=== PATIENT | female | born 1965 | race Caucasian/White ===

== ENCOUNTER 2021-06-11 19:40 | Observation (INO) | payer OTHER ==
[~2021-06-11] VITALS: Ht 170.2 cm; Wt 127.9 kg
[2021-06-11 19:47] VITALS: BP 97/47
[2021-06-11] MEDS ORDERED: LISINOPRIL-HCT1 EAC2 PO (19:54)
[2021-06-11] MEDS ORDERED: ACYCLOVIR 200200 MG PO (19:54)
[2021-06-11] MEDS ORDERED: ESCITALOPRA5 MG/5 ML PO (19:56)
[2021-06-11] MEDS ORDERED: PERCOCET 5-3251 EACH PO (19:57)
[2021-06-11] MEDS ORDERED: XARELTO20 MG PO (19:58)
[2021-06-11] MEDS ORDERED: COMPAZINE10 MG PO (19:58)
[2021-06-11] MEDS ORDERED: CEPHALEXIN500 MG PO (19:58)
[2021-06-11 21:11] LABS: ABSOLUTE EOSINOPHILS 0.1 thou/uL (0.0-0.7); ABSOLUTE LYMPHOCYTES 1.1 thou/uL (0.8-5.3); ABSOLUTE MONOCYTES 0.6 thou/uL (0.0-1.2); ABSOLUTE NEUTROPHILS 2.1 thou/uL (1.6-8.1); BASOPHILS 0.9 %; EOSINOPHILS 1.4 %; HEMATOCRIT 25.7 % (37.0-47.0); HEMOGLOBIN 8.7 gm/dL (12.0-15.0); LYMPHOCYTES 29.1 %; MCH 35.6 pg (26.0-34.0); MCV 104.9 fL (80.0-100.0); MONOCYTES 14.3 %; MPV 5.8 fl. (7.2-11.1); NUCLEATED RBCS 0 /100WBC; PLATELET COUNT* 248 thou/uL (150-400); POLYS 54.3 %; RBC 2.45 mil/uL (4.20-5.00); WBC 3.9 thou/uL (4.0-11.0)
[2021-06-11 21:21] LABS: CALCIUM 8.8 mg/dL (8.5-10.1); POTASSIUM 3.9 mmol/L (3.5-5.1)
[2021-06-11 21:31] LABS: ALBUMIN 3.4 g/dL (3.4-5.0); MAGNESIUM 1.7 mg/dL (1.8-2.4); TOTAL BILIRUBIN 0.3 mg/dL (<0.1-1.0); TOTAL PROTEIN 6.5 g/dL (6.4-8.2)
[2021-06-11 21:53] LABS: INR 1.2; PROTIME 13.1 Seconds (9.20-11.50)
[2021-06-12 02:03] LABS: URINE BILIRUBIN NEGATIVE (Negative); URINE BLOOD NEGATIVE (Negative); URINE CLARITY CLEAR; URINE COLOR YELLOW; URINE GLUCOSE-RANDOM NEGATIVE (Negative); URINE KETONES NEGATIVE (Negative); URINE LEUKOCYTES-REFLEX 1+ (Negative); URINE NITRITE-REFLEX NEGATIVE (Negative); URINE PROTEIN NEGATIVE (Negative); URINE SPECIFIC GRAVITY 1.015 (1.005-1.030); URINE UROBILINOGEN 0.2 E.U./dl (0.2-1.0)
[2021-06-12 02:50] LABS: CASTS None Seen /LPF (None Seen); SQUAMOUS >10 Many /LPF (0-3)
[2021-06-12 02:51] LABS: CRYSTALS None Seen /LPF (None Seen); MUCUS 0-3 Light strn/LPF (None Seen); URINE RBC None Seen /HPF (0-2); URINE WBC-REFLEX 6-15 Few /HPF (0-5)
[2021-06-12 04:30] VITALS: BP 121/49
[2021-06-12] MEDS ORDERED: CHEMO THERAPY (07:26)
[2021-06-12 07:29] VITALS: BP 111/47
--- NOTE | 2021-06-12 08:44 | NUR ---
PT GIVEN REGULAR DIET BREAKFAST TRAY. PT HAVING ADMISSION ASSESSMENT DONE AT THIS TIME.
--- NOTE | 2021-06-12 10:50 | EKG ---
[place] [address] ELECTROCARDIOGRAM REPORT Name: ALICIA SAAVEDRA Room: [address]#: [id number] Admission: 06/12/21 Attend Phys: Zhao Valentin Discharge: Date of : 67 Date of Service: 06/11/212024 Report #: [id number] THIS REPORT FOR: //name// [facility] ED Test Date: 2021-06-11 Test Time: 20:25:41 Pat Name: ALICIA SAAVEDRA Department: Room: [facility] Gender: F [employer] Good[employer] Salesperson: ADRIENNE : 1965 Requested By: Ruchi Nicole Order Number: [id number] MD: Keny Natarajan Measurements Intervals [place] Rate: 70 P: 26 CT: 152 QRS: -26 QRSD: 94 T: 8 QT: 406 QTc: 439 Interpretive Statements Sinus rhythm Borderline left axis deviation Low voltage, precordial leads Consider anterior infarct No previous ECG available for comparison Electronically Signed On 06-12-2021 10:50:03 CDT by Keny Natarajan [email or web address] <ELECTRONICALLY SIGNED> By: Keny Natarajan MD, [facility] 06/12/21 1050 24 24 Keny Natarajan MD, [facility] /EPI
[2021-06-12 10:59] VITALS: BP 111/47
--- NOTE | 2021-06-12 11:18 | NUR ---
1054: PATIENT ADMITTED TO [facility] DUE TO SYNCOPE, LEFT ARM SWELLING AND ANEMIA. PATIENT TRANSFERED FROM ED VIA BED, ACCOMPANIED BY SIGNIFICANT OTHER AND STAFF. PATIENT ORIENTED TO ROOM AND FLOOR. REPORT RECIEVED FROM SANGITA JERNIGAN. ADMISSION DATA BASE COMPLETED. VITAL SIGNS WNL. IV TO RIGHT AC, PATENT. 98% ON ROOM AIR. ALL QUESTIONS AND CONCERNS ADDRESSED. WILL CONTINUE TO MONITOR.
[2021-06-12 15:31] VITALS: BP 110/49
[2021-06-12 15:32] VITALS: BP 110/49
--- NOTE | 2021-06-12 18:19 | NUR ---
PATIENT RESTING IN BED. ALERT AND ORIENTED X4. PORT TO LEFT CHEST, NOT ACCESSED. EDEMA TO LEFT ARM AND LOWER EXTREMITIES. C/O PAIN TO FINGER TIPS, STATE THAT IS NORMAL FOR HER SINCE STARTING CHEMO. IV TO RIGHT AC, SALINE LOCKED, PATENT. BED IN LOW/LOCKED POSITION. CALL LIGHT WITHIN REACH. ALL QUESTIONS AND CONCERNS ADDRESSED.
[2021-06-12 19:45] VITALS: BP 116/60
--- NOTE | 2021-06-12 19:45 | NUR ---
RECEIVED REPORT AND ASSUMED CARE OF PT, ASSESSMENT COMPLETED. PT PLEASANT AND TALKATIVE. LT ARM LIMB ALERT NOTED, PT DENIES PAIN INTO ARM. GAIT STEADY TO AND FROM BR INDEPENDENTLY. TELEMETRY ON SHOWING SR. WILL CONT TO MONITOR AND ASSIST NEEDED.
[2021-06-13] VITALS: BP 108/50
[2021-06-13 04:04] VITALS: BP 108/60
--- NOTE | 2021-06-13 05:51 | NUR ---
SLEPT WELL TONIGHT. DENIES DISCOMFORT. PT DOES BECOME NAUSEATED WITH PO ANTIBIOTICS, MEDS GIVEN. NO CHANGE IN ASSESSMENT. HS GOALS OF REST AND SAFETY ACHIEVED.
[2021-06-13 07:56] VITALS: BP 102/49
--- NOTE | 2021-06-13 08:00 | NUR ---
ASSUMED CARE OF PT AT 0730. PT A&0X4, DENIES ANY PAIN OR SHORTNESS OF BREATH AT THIS TIME. TRACING SR ON THE PROGRAMMING MANAGER. ON RA SAT UPPER 90'S. PT UP AD SHANI IN ROOM. PT GOAL FOR TODAY IS DISCHARGE PLANNING TO HOME. AM ASSESSMENT CHARTED. MEDICATIONS PER NOV. PT REPOSITIONS SELF. HOURLY ROUNDING OBSERVED. BED IN LOW POSITION. CALL LIGHT WITHIN REACH. WILL CONTINUE PLAN OF CARE.
[2021-06-13 08:49] LABS: ABSOLUTE EOSINOPHILS 0.1 thou/uL (0.0-0.7); ABSOLUTE LYMPHOCYTES 0.9 thou/uL (0.8-5.3); ABSOLUTE MONOCYTES 0.4 thou/uL (0.0-1.2); ABSOLUTE NEUTROPHILS 1.4 thou/uL (1.6-8.1); BASOPHILS 0.2 %; EOSINOPHILS 1.9 %; HEMATOCRIT 26.1 % (37.0-47.0); HEMOGLOBIN 8.9 gm/dL (12.0-15.0); LYMPHOCYTES 33.4 %; MCH 35.7 pg (26.0-34.0); MCHC 34.2 g/dL (28.0-37.0); MCV 104.2 fL (80.0-100.0); MONOCYTES 13.6 %; MPV 5.6 fl. (7.2-11.1); NUCLEATED RBCS 0 /100WBC; PLATELET COUNT* 274 thou/uL (150-400); POLYS 50.9 %; RDW-CV 17.6 % (10.5-14.5); WBC 2.8 thou/uL (4.0-11.0)
[2021-06-13 09:06] LABS: ALBUMIN 3.1 g/dL (3.4-5.0); CALCIUM 8.9 mg/dL (8.5-10.1); CREATININE 0.8 mg/dL (0.6-1.3); POTASSIUM 3.4 mmol/L (3.5-5.1); TOTAL BILIRUBIN 0.4 mg/dL (<0.1-1.0); TOTAL PROTEIN 6.3 g/dL (6.4-8.2)
[2021-06-13] MEDS ORDERED: LASIX 20 MG TAB20 MG PO (10:50)
[2021-06-13 11:36] VITALS: BP 102/49
--- NOTE | 2021-06-13 11:54 | NUR ---
DISCHARGE ORDERS RECEIVED. DISCHARGE INSTRUCTIONS, CARE NOTES, E SCRIPTS AND FOLLOW UP APPTS GIVEN TO PT. PT COMMUNICATES UNDERSTANDING OF DISCHARGE TEACHING. IV AND MIXER FOAM RUBBER REMOVED. PT DISCHARGED WITH ALL BELONGINGS AND PAPERWORK VIA WHEELCHAIR WITH NURSING STAFF TO SPOUSE OWN PERSONAL VEHICLE.
== END 2021-06-13 12:00 | disposition home or self-care (01) ==
LOC: M.ERS 19:40 → M.TBA-ER 06-12 00:22 → M.2W 06-12 10:55
PROVIDERS: Emergency Medicine; Internal Medicine; ADMIT Internal Medicine; ATTEND Internal Medicine
DX: I82.622 Acute embolism and thrombosis of deep veins of left upper extremity (principal); N39.0 Urinary tract infection, site not specified; Z20.822 Contact with and (suspected) exposure to COVID-19; R60.0 Localized edema; D64.9 Anemia, unspecified; R41.0 Disorientation, unspecified; R42 Dizziness and giddiness; E86.0 Dehydration; L60.8 Other nail disorders; R55 Syncope and collapse; Z85.3 Personal history of malignant neoplasm of breast; Z79.899 Other long term (current) drug therapy